=== PATIENT | male | born 1965 | race Hispanic/Latino ===

== ENCOUNTER 2017-01-19 02:39 | Emergency (ER) | payer OTHER ==
[2017-01-19 03:14] VITALS: BP 128/77; PULSE 86; RESP 17; TEMP 98.7; O2SAT 100
[2017-01-19] MEDS ORDERED: Lidocaine 2% w Epi 1:100,000 Inj IJ ONE (03:39)
--- NOTE | 2017-01-19 03:40 | ED PDOC ---
HPI: Wound Care - HPI Time Seen by Provider: 01/19/17 03:31 Chief Complaint (Nursing): Abnormal Skin Integrity Chief Complaint (Provider): scalp laceration History Per: Patient History Of Present Illness: 51 y/o male presents with laceration to scalp, sustained prior to arrival. Patient states he tripped over couch trying to close blinds and head hit corner of bed upon falling. Denies LOC, headache, dizziness, nausea/vomiting, vision changes. Last tetanus unknown. Past Medical History Reviewed: Historical Data, Nursing Documentation, Vital Signs Vital Signs: Last Vital Signs Temp 98.7 F 01/19/17 03:10 Pulse 86 01/19/17 03:10 Resp 17 01/19/17 03:10 BP 128/77 01/19/17 03:10 Pulse Ox 100 01/19/17 03:10 - Medical History PMH: Diabetes - Surgical History Other surgeries: right hip sx - Family History Family History: States: Unknown Family Hx - Allergies Allergies/Adverse Reactions: Allergies Allergy/AdvReac Type Severity Reaction Status Date / Time No Known Allergies Allergy Verified 01/19/17 03:14 Review of Systems ROS Statement: Except As Marked, All Systems Reviewed And Found Negative Skin: Positive for: Lesions (scalp laceration) Physical Exam - Reviewed Nursing Documentation Reviewed: Yes Vital Signs Reviewed: Yes - Physical Exam Appears: Positive for: Well, Non-toxic, No Acute Distress Head Exam: Negative for: ATRAUMATIC (4.2cm left frontal/parietal scalp laceration; no active bleeding) Skin: Positive for: Normal Color Eye Exam: Positive for: Normal appearance, EOMI, PERRL Cardiovascular/Chest: Positive for: Regular Rate, Rhythm Respiratory: Positive for: Normal Breath Sounds Neurologic/Psych: Positive for: Alert, Oriented. Negative for: Motor/Sensory Deficits - ECG O2 Sat by Pulse Oximetry: 100 Procedure: Wound Repair - Time Performed Time Performed: 03:50 - Time Out Time Out: Side verified, Site verified, Patient ID confirmed, Sterile procedures obs. - Procedure Procedure: Wound Repair: scalp laceration - Consent Obtained Consent obtained: Verbal - Performed by Performed by: Mid-level Provider - Indications Indication(s):: Laceration - Location Location:: Scalp Finger:: Left Shape:: Curvilinear Dimensions Length cm: 4.2 Dimensions width cm: 1 Depth:: Epidermis - Anesthetic Technique Anesthetic Technique: Topical Local/Regional Anesthetic:: Lidocaine 2% w/epi - Debris Debris:: None - Irrigated Irrigated with ml of normal saline: 200mL - Wound repair method Sutures:: # (7 surgical yojana) [place]:: Tissue glue (frontal superficial portion) - Muscle repiar layer closed with Muscle repair layer closed with:: Abx ointment applied, Tetanus ordered - Patient tolerated procedure Patient Tolerated Procedure:: Well Medical Decision Making Medical Decision Making: Patient educated on wound care; staple removal 8-10 days. Advised neosporin daily. Return to ED for increased pain/redness/swelling from site, discharge from site , or other concerning symptoms. Disposition - Clinical Impression Clinical Impression: Scalp laceration - Patient ED Disposition Is Patient to be Admitted: No Counseled Patient/Family Regarding: Diagnosis, Need For Followup - Disposition Disposition: Routine/Home Disposition Time: 04:16 Condition: STABLE Additional Instructions: Staple removal 8-10 days. Apply neosporin daily. Return to ED for increased pain/redness/swelling at site, discharge from site, or other concerning symptoms. Instructions: Laceration (ED), Staple Care (ED)
[2017-01-19] MEDS ORDERED: Lidocaine/Epi 1% 1:100000 20 ML IJ ONE (03:42)
[2017-01-19] MEDS ORDERED: TDAP Vaccine 0.5 mL Syr IM ONE (03:42)
== END 2017-01-19 04:12 | disposition home or self-care (01) ==
LOC: H.ER 02:39
DX: S01.01XA Laceration without foreign body of scalp, initial encounter (principal); W01.0XXA Fall on same level from slipping, tripping and stumbling without subsequent striking against object, initial encounter; Y92.008 Other place in unspecified non-institutional (private) residence as the place of occurrence of the external cause; E11.9 Type 2 diabetes mellitus without complications